=== PATIENT | male | born 1975 | race African-American/Black ===

== ENCOUNTER 2018-09-13 21:40 | Emergency (ER) | payer OTHER ==
--- NOTE | 2018-09-13 21:46 | ER Report ---
History and Physical Time Seen By MD: 21:45 HPI/ROS CHIEF COMPLAINT: Left-sided visual field deficit HISTORY OF PRESENT ILLNESS: Patient is a 42-year-old male here with complaints of left-sided visual field deficits which started yesterday afternoon when the patient was in [place] at a mall and developed a headache and started bumping into objects and people who were situated in the left side of his visual field. Patient's headache has somewhat resolved since time of onset however his visual field deficits have not resolved. Patient was evaluated at urgent care and was noted to have a large right sided ischemic parietal stroke. Patient is alert and oriented, cranial nerves intact at time of evaluation. REVIEW OF SYSTEMS: Constitutional: No fever, no chills. Eyes: No discharge. ENT: No sore throat. Cardiovascular: No chest pain, no palpitations. Respiratory: No cough, no shortness of breath. Gastrointestinal: No abdominal pain, no vomiting. Genitourinary: No hematuria. Musculoskeletal: No back pain. Skin: No rashes. Neurological: Left sided visual field deficits, cranial nerves intact, no motor or since her deficits otherwise Allergies: Coded Allergies: No Known Drug Allergies (Unverified , 09/13/18) Constitutional Vital Sign - Last 24 Hours 09/13/18 09/13/18 09/13/18 09/13/18 21:40 21:45 21:46 21:55 Temp 98.9 Pulse ??? 77 83 Resp 14 16 B/P (MAP) 150/92 150/92 (111) Pulse Ox 100 100 O2 Delivery Room Air 09/13/18 09/13/18 09/13/18 09/13/18 22:00 22:10 22:25 22:40 Pulse 85 80 80 Resp 8 9 10 B/P (MAP) ???/??? (7015) Pulse Ox 95 93 93 09/13/18 09/13/18 09/13/18 09/13/18 22:41 22:55 23:00 23:10 Pulse 78 76 Resp 16 12 B/P (MAP) 144/94 (111) 135/89 (104) Pulse Ox 96 99 09/13/18 09/13/18 09/13/18 23:25 23:30 23:35 Pulse 77 80 Resp 10 0 B/P (MAP) 137/79 (98) Pulse Ox 89 88 Physical Exam General Appearance: The patient is alert, has no immediate need for airway protection and no signs of toxicity. Anxious appearing Eyes: Pupils equal and round no pallor or injection. ENT, Mouth: Mucous membranes are moist. Respiratory: There are no retractions, lungs are clear to auscultation. Cardiovascular: Regular rate and rhythm. Gastrointestinal: Abdomen is soft and non tender, no masses, bowel sounds normal. Neurological: Left-sided visual field deficits on confrontation, extraocular muscles intact, cranial nerves intact, no other focal neurological findings on thorough neurological examination Skin: Warm and dry, no rashes. Musculoskeletal: Neck is supple non tender. Extremities are nontender, nonswollen and have full range of motion. DIFFERENTIAL DIAGNOSIS: After history and physical exam differential diagnosis was considered for ischemic, hemorrhagic stroke, atypical migraine Medical Decision Making Data Points Result Diagram: 09/13/18215609/13/182156 Laboratory Hematology Test 09/13/18 21:57 Red Blood Count 4.72 M/uL (4.00-5.60) Mean Corpuscular Volume 94.7 fL (80.0-96.0) Mean Corpuscular Hemoglobin 31.9 pg (26.0-33.0) Mean Corpuscular Hemoglobin Concent 33.7 g/dL (32.0-36.0) Red Cell Distribution Width 13.2 % (11.5-14.5) Mean Platelet Volume 8.0 fL (7.2-11.1) Neutrophils (%) (Auto) 49.2 % (39.4-72.5) Lymphocytes (%) (Auto) 38.8 % (17.6-49.6) Monocytes (%) (Auto) 7.9 % (4.1-12.4) Eosinophils (%) (Auto) 2.8 % (0.4-6.7) Basophils (%) (Auto) 1.3 % (0.3-1.4) Nucleated RBC Relative Count (auto) 0.1 /100WBC Neutrophils # (Auto) 4.8 K/uL (2.0-7.4) Lymphocytes # (Auto) 3.8 K/uL (1.3-3.6) Monocytes # (Auto) 0.8 K/uL (0.3-1.0) Eosinophils # (Auto) 0.3 K/uL (0.0-0.5) Basophils # (Auto) 0.1 K/uL (0.0-0.1) Nucleated RBC Absolute Count (auto) 0.01 K/uL Peripheral Blood Smear Yes Y/N Prothrombin Time 11.9 seconds (12.0-14.4) Prothromb Time International Ratio 0.88 Activated Partial Thromboplast Time 25 seconds (23-35) Sodium Level 142 mmol/L (137-145) Potassium Level 4.7 mmol/L (3.5-5.0) Chloride Level 104 mmol/L (98-107) Carbon Dioxide Level 28 mmol/L (22-30) Blood Urea Nitrogen 12 mg/dl (9-21) Creatinine 1.40 mg/dl (0.66-1.25) Glomerular Filtration Rate Calc 55.1 Random Glucose 102 mg/dl (75-110) Calcium Level 10.2 mg/dl (8.4-10.2) Total Bilirubin 0.6 mg/dl (0.2-1.3) Aspartate Amino Transf (AST/SGOT) 41 U/L (0-35) Alanine Aminotransferase (ALT/SGPT) 38 U/L (0-56) Alkaline Phosphatase 113 U/L (0-126) Total Protein 8.5 g/dl (6.3-8.2) Albumin 4.5 g/dl (3.5-5.0) Chemistry Test 09/13/18 21:57 White Blood Count 9.7 k/uL (4.5-11.0) Red Blood Count 4.72 M/uL (4.00-5.60) Hemoglobin 15.1 g/dL (14.0-18.0) Hematocrit 44.7 % (42.0-52.0) Mean Corpuscular Volume 94.7 fL (80.0-96.0) Mean Corpuscular Hemoglobin 31.9 pg (26.0-33.0) Mean Corpuscular Hemoglobin Concent 33.7 g/dL (32.0-36.0) Red Cell Distribution Width 13.2 % (11.5-14.5) Platelet Count 251 K/uL (150-450) Mean Platelet Volume 8.0 fL (7.2-11.1) Neutrophils (%) (Auto) 49.2 % (39.4-72.5) Lymphocytes (%) (Auto) 38.8 % (17.6-49.6) Monocytes (%) (Auto) 7.9 % (4.1-12.4) Eosinophils (%) (Auto) 2.8 % (0.4-6.7) Basophils (%) (Auto) 1.3 % (0.3-1.4) Nucleated RBC Relative Count (auto) 0.1 /100WBC Neutrophils # (Auto) 4.8 K/uL (2.0-7.4) Lymphocytes # (Auto) 3.8 K/uL (1.3-3.6) Monocytes # (Auto) 0.8 K/uL (0.3-1.0) Eosinophils # (Auto) 0.3 K/uL (0.0-0.5) Basophils # (Auto) 0.1 K/uL (0.0-0.1) Nucleated RBC Absolute Count (auto) 0.01 K/uL Peripheral Blood Smear Yes Y/N Prothrombin Time 11.9 seconds (12.0-14.4) Prothromb Time International Ratio 0.88 Activated Partial Thromboplast Time 25 seconds (23-35) Glomerular Filtration Rate Calc 55.1 Calcium Level 10.2 mg/dl (8.4-10.2) Total Bilirubin 0.6 mg/dl (0.2-1.3) Aspartate Amino Transf (AST/SGOT) 41 U/L (0-35) Alanine Aminotransferase (ALT/SGPT) 38 U/L (0-56) Alkaline Phosphatase 113 U/L (0-126) Total Protein 8.5 g/dl (6.3-8.2) Albumin 4.5 g/dl (3.5-5.0) Coagulation Test 09/13/18 21:57 Prothrombin Time 11.9 seconds Prothromb Time International Ratio 0.88 Activated Partial Thromboplast Time 25 seconds EKG/Imaging Imaging PATIENT NAME: Mal Shah : 1975 MR: [id number] V: [id number] EXAM DATE: ORDERING PHYSICIAN: RICHARD GARRETT TECHNOLOGIST: Location: [facility] [place] Patient: Mal Shah : 1975 Visit/Account:[id number] Date of Sevice: 09/13/2018 EXAMINATION: CT Head Without Contrast 09/13/2018 9:00 PM HISTORY: Altered mental status for one day TECHNIQUE: Contiguous axial images were obtained from the skull base to the vertex without intravenous contrast. One of the following dose optimization techniques was utilized in the performance of this exam: Automated exposure control; adjustment of the mA and/o r kV according to the patient's size; or use of an iterative reconstruction technique. Specific details can be referenced in the facility's radiology CT exam operational policy. COMPARISON STUDIES: none. FINDINGS: Ventricles / sulci / fissures: negative Masses / hemorrhage / midline shift: negative White matter: negative Sosa-white differentiation: Hypodensity involving the right parietal lobe measuring about 4.7 cm oblique AP by 5.1 cm oblique transverse by 2.7 cm craniocaudal. This appears to involve sosa and white matter and does not have surrounding vasogenic edema and the appearance most consistent with an acute or subacute stroke. There is a small area of encephalomalacia from an older stroke laterally in the right frontal lobe. Extra-axial spaces: negative Dural venous sinuses / arterial structures: negative Skull base / calvarium: negative Visualized mastoid air cells / paranasal sinuses: negative IMPRESSION: 1. Large acute/subacute stroke in the right parietal lobe without associated hemorrhagic density. 2. Additional small area of encephalomalacia from old insult in the lateral right frontal lobe. I called report to RICHARD GARRETT at 09/13/2018 9:34 PM. ED Course/Re-evaluation ED Course Patient is a 42-year-old male here with complaints of left-sided visual field deficits which started yesterday afternoon. Patient was identified to have a 5 cm right parietal ischemic stroke on CT imaging completed by urgent care. I discussed the patient with neurology at [facility] doctor Travon Hernandez who accepted the patient in transfer, I also discussed the patient with who is the hospitalist at [facility] who also accepted the patient. Patient was transferred in stable condition to [facility] in stable condition. Patient was stable at time of transfer Decision to Disposition Date: September 14, 2018 Decision to Disposition Time: 00:00 Depart Departure Latest Vital Signs Vital Signs Date Time Temp Pulse Resp B/P (MAP) Pulse Ox O2 Delivery O2 Flow Rate FiO2 09/13/18 23:35 80 0 88 09/13/18 23:30 137/79 (98) 09/13/18 21:45 98.9 Room Air Impression: Primary Impression: Ischemic stroke Condition: Condition Unchanged Disposition: XFER TO ACUTE CARE HOSP[facility] ([facility]) ALEXY KING DO September 13, 2018 21:46
[2018-09-13 22:13] LABS: PLATELET COUNT, AUTOMATED 251 K/uL (150-450)
[2018-09-13 22:20] LABS: INR 0.88
[2018-09-13 23:30] VITALS: BP 137/79
== END 2018-09-13 23:55 | disposition short-term general hospital (02) ==
LOC: ER 22:00
DX: I63.9 Cerebral infarction, unspecified (principal); H53.8 Other visual disturbances
CPT/HCPCS: 82040; 82247; 82310; 82374; 82435; 82565; 82947; 84075; 84132; 84155; 84295; 84450; 84460; 84520; 85025; 85610; 85730; 99285

== ENCOUNTER → 2018-09-13 | Outpatient (CLI) | payer OTHER | LOC: AMB 23:44 | PROVIDERS: ATTEND Nurse Practitioner | DX: I63.9 Cerebral infarction, unspecified (principal) | CPT/HCPCS: A0425; A0428 ==

== ENCOUNTER → 2018-09-13 | Outpatient (CLI) | payer OTHER ==
--- NOTE | 2018-09-13 21:38 | RADIOLOGY IMAGING REPORT ---
FACILITY: [facility] PATIENT NAME: Mal Shah : 1975 MR: [id number] V: [id number] EXAM DATE: ORDERING PHYSICIAN: RICHARD GARRETT TECHNOLOGIST: Location: [facility] - [place] Patient: Mal Shah : 1975 Visit/Account:[id number] Date of Sevice: 09/13/2018 EXAMINATION: CT Head Without Contrast 09/13/2018 9:00 PM HISTORY: Altered mental status for one day TECHNIQUE: Contiguous axial images were obtained from the skull base to the vertex without intraven ous contrast. One of the following dose optimization techniques was utilized in the performance of this exam: Autom ated exposure control; adjustment of the mA and/or kV according to the patient's size; or use of an i terative reconstruction technique. Specific details can be referenced in the facility's radiology C T exam operational policy. COMPARISON STUDIES: none. FINDINGS: Ventricles / sulci / fissures: negative Masses / hemorrhage / midline shift: negative White matter: negative Sosa-white differentiation: Hypodensity involving the right parietal lobe measuring about 4.7 cm obli que AP by 5.1 cm oblique transverse by 2.7 cm craniocaudal. This appears to involve sosa and white ma tter and does not have surrounding vasogenic edema and the appearance most consistent with an acute o r subacute stroke. There is a small area of encephalomalacia from an older stroke laterally in the ri ght frontal lobe. Extra-axial spaces: negative Dural venous sinuses / arterial structures: negative Skull base / calvarium: negative Visualized mastoid air cells / paranasal sinuses: negative IMPRESSION: 1. Large acute/subacute stroke in the right parietal lobe without associated hemorrhagic density. 2. Additional small area of encephalomalacia from old insult in the lateral right frontal lobe. I called report to RICHARD GARRETT at 09/13/2018 9:34 PM. Report Dictated By: Brent Osuna MD at 09/13/2018 9:24 PM Report E-Signed By: Brent Osuna MD at 09/13/2018 9:34 PM [id number]
== END ==
LOC: CT 19:33
PROVIDERS: ATTEND Nurse Practitioner Family
DX: I63.89 Other cerebral infarction (principal)
CPT/HCPCS: 70450